=== PATIENT | male | born 1975 | race Caucasian/White ===

== ENCOUNTER → 2024-05-12 | Outpatient (CLI) | payer OTHER ==
[~2024-05-12] MED LIST: HYDACE5 PO; HYDHOMSY PO; PENVK500 PO; RXHYDACE PO; RXPENVK250 PO
== END ==
LOC: LAB SHORT 13:16 → LAB 13:16
DX: J02.9 Acute pharyngitis, unspecified (principal)
CPT/HCPCS: 87081